=== PATIENT | female | born 1955 | race African-American/Black ===

== ENCOUNTER 2017-01-07 09:15 | Emergency (ER) | payer MEDICARE ==
--- NOTE | 2017-01-07 09:35 | ED.PDOC ---
History of Present Illness - General Chief Complaint: Upper Extremity Injury Stated Complaint: L wrist - drop vs fracture Time Seen by Provider: 01/07/17 09:18 Source: EMS notes reviewed Exam Limitations: clinical condition, physical impairment - History of Present Illness Initial Comments: Maritza ^# y/o female ventilator dependent resident at [facility] brought by ems after it was noted that he had weak careers adviser of her left wrist this morning.Records showed that she had history of chronic respiratory failure with trach and on ventilator dependent, Occurred: just prior to arrival Pain - Upper Extremity: moderate: Wrist, left Method of Injury: unknown Improving Factors: nothing Allergies/Adverse Reactions: Allergies NO KNOWN ALLERGY Allergy (Verified 01/07/17 09:43) Review of Systems - Review of Systems Respiratory: States: other - chronic respiratory failure Musculoskeletal: States: see HPI Neurological: States: see HPI Unable to Obtain Due To: clinical condition Past Medical History (General) - Patient Medical History Hx Other - free text: Chronic respiratory failure ventilator dependent Surgical History: other - tracheostomy,gastrostomy - Activities of Daily Living Senior Care/Assisted Living (if applicable):: [facility] Grooming Ability: Maximum Assistance Eating (Feeding) Ability: Maximum Assistance Toileting Ability: Maximum Assistance Family Medical History - Family History Mother Family History: Unknown Living Status: Unknown Physical Exam - Physical Exam General Appearance: Alert, No apparent distress Eyes, Ears, Nose, Throat Exam: PERRL/EOMI, normal ENT inspection, TMs normal Neck: non-tender, full range of motion, supple, other - tracheostomy patent Cardiovascular/Respiratory: regular rate, rhythm, no M/R/G, normal peripheral pulses, no JVD Abdominal Exam: non-tender, no organomegaly, other - gastrostomy tube patent Shoulder Exam: normal inspection, non-tender, no evidence of injury Elbow/Forearm Exam: normal inspection, non-tender Wrist Exam: normal inspection, non-tender, no evidence of injury Hand Exam: normal inspection, non-tender, no evidence of injury, limited ROM - flexion deformity left wrist Neuro/Tendon: normal sensation, normal motor functions, normal tendon functions , responds to pain, no evidence tendon injury, other - negative pronator drift Mental Status: alert, other - non verbal due to tracheostomy tube Skin Exam: normal color, warm/dry Progress - Results/Orders Results/Orders: 01/07/17 09:58 COMPLETE METABOLIC PROFILE Stat MAGNESIUM Stat THYROID STIMULATING HORMONE Stat Laboratory Results WBC 6.5 K/mm3 (4.8-10.8) 01/07/17 09:58 RBC 3.78 M/mm3 (4.20-5.40) L 01/07/17 09:58 Hgb 10.8 gm/dL (12.0-16.0) L 01/07/17 09:58 Hct 33.4 % (36.0-47.0) L 01/07/17 09:58 MCV 88.3 fl (81.0-99.0) 01/07/17 09:58 MCH 28.5 pg (27.0-31.0) 01/07/17 09:58 MCHC 32.4 g/dL (33.0-37.0) L 01/07/17 09:58 RDW 14.0 % (11.5-14.5) 01/07/17 09:58 Plt Count 219 K/mm3 (130-400) 01/07/17 09:58 Sodium 139 mmol/L (135-145) 01/07/17 09:58 Potassium 4.0 mmol/L (3.6-5.0) 01/07/17 09:58 Chloride 93 mmol/L (101-111) L 01/07/17 09:58 Carbon Dioxide 36 mmol/L (21-31) H 01/07/17 09:58 Anion Gap 14.0 (12-18) 01/07/17 09:58 BUN 14 mg/dL (7-18) 01/07/17 09:58 Creatinine 0.55 mg/dL (0.6-1.3) L 01/07/17 09:58 BUN/Creatinine Ratio 25.5 (10-20) H 01/07/17 09:58 Random Glucose 207 mg/dL (70-105) H 01/07/17 09:58 Serum Osmolality 284.0 mOsm/L (275-295) 01/07/17 09:58 Calcium 9.8 mg/dL (8.4-10.2) 01/07/17 09:58 Magnesium 1.7 mg/dL (1.8-2.5) L 01/07/17 09:58 Total Bilirubin 0.3 mg/dL (0.2-1.0) 03/07/17 09:58 AST 19 IU/L (10-42) 01/07/17 09:58 ALT 25 IU/L (10-60) 01/07/17 09:58 Alkaline Phosphatase 76 IU/L (42-121) 01/07/17 09:58 Serum Total Protein 6.8 gm/dL (6.4-8.2) 01/07/17 09:58 Albumin 3.4 g/dl (3.2-5.5) 01/07/17 09:58 Globulin 3.4 gm/dL (2.3-3.5) 01/07/17 09:58 Albumin/Globulin Ratio 1.0 (1.1-1.9) L 01/07/17 09:58 - EKG/XRAY/CT XRAY: chest - atelectasis,no effusion CT Ordered: Yes - no infarct or hemorrhage Departure - Departure Clinical Impression: Weakness of left arm, Chronic respiratory failure not affecting current episode of care, Ventilator dependent Time of Disposition: 12:33 Disposition: Discharge to Home or Self Care Condition: Good Departure Forms: ED Discharge - Pt. Copy, Patient Portal Self Enrollment Referrals: KASSANDRA BAKER [Primary Care Provider] - 1-2 Weeks Additional Instructions: NEED PHYSICAL THERAPY REFERRAL
--- NOTE | 2017-01-07 11:13 | RAD ---
Study: Single Frontal View of the Chest. Indication:pain Comparison: None Impression: Tracheostomy tube terminates just below the clavicles. Mild cardiomegaly. Thoracic aorta tortuous. Emphysema with suspected bibasilar scarring, otherwise lungs clear. No pneumothorax. Osteopenia. If this is a new finding, DEXA scan recommended as well as evaluation for possible osteoporosis treatment. Electronically signed by: Miles Murillo MD 01/07/2017 11:13 AM TOURIST INFORMATION ASSISTANT
--- NOTE | 2017-01-07 11:13 | CT ---
Study: CT of the Head. Indication: weakness Technique: Axial CT images of the head were acquired without intravenous contrast. Comparison: None. Findings: Examination mild to moderately motion grated. No CT evidence of acute ischemia, acute hemorrhage, mass, mass effect, midline shift, or extra-axial fluid collection. Ventricles are normal in configuration without hydrocephalus. Brain parenchyma demonstrates a normal appearance for patient age. Paranasal sinuses are adequately aerated. Mastoid air cells are adequately aerated. Osseous structures and soft tissues are unremarkable. Impression: 1. Mild to moderately motion grade examination without gross CT evidence of acute intracranial abnormality. If persistent concern for acute ischemia, correlation with MRI recommended. Electronically signed by: Miles Murillo MD 01/07/2017 11:12 AM FORESTRY PILOT
--- NOTE | 2017-01-07 11:32 | RAD ---
Two view left wrist. Indication: pain Comparison: None. Impression: No acute fracture or malalignment. If there is persistent anatomic snuffbox tenderness, repeat wrist imaging to include a scaphoid view is recommended in one week to evaluate for occult scaphoid fracture. Soft tissues are intact without radiopaque foreign body. Osteopenia. If this is a new finding, DEXA scan recommended as well as evaluation for possible osteoporosis treatment. Electronically signed by: Miles Murillo MD 01/07/2017 11:31 AM INSTALLER HELPER
[2017-01-10 05:44] VITALS: TEMP 98; O2SAT 100
[2017-01-10 05:45] VITALS: BP 118/69
== END 2017-01-07 12:35 | disposition home or self-care (01) ==
LOC: ER 09:15
DX: M62.81 Muscle weakness (generalized) (principal); J96.10 Chronic respiratory failure, unspecified whether with hypoxia or hypercapnia; Z99.11 Dependence on respirator [ventilator] status

== ENCOUNTER 2017-01-10 06:49 | Emergency (ER) | payer MEDICARE ==
[2017-01-10 07:09] VITALS: TEMP 98.6
[2017-01-10] MEDS ORDERED: IPRATROPIUM/ALBUTEROL 3 ML VIAL NEB ONE (07:25)
[2017-01-10] MEDS ORDERED: LEVALBUTEROL NEBS 1.25 MG/3 ML VIAL NEB ONE ×2 (07:30)
--- NOTE | 2017-01-10 07:37 | ED.PDOC ---
History of Present Illness - General Chief Complaint: Neuro Symptoms/Deficits Stated Complaint: decrease level of awareness-somnolent Time Seen by Provider: 01/10/17 07:26 Source: EMS notes reviewed, EMS Exam Limitations: clinical condition, physical impairment - History of Present Illness Initial Comments: Medina Damian 62 y/o female patient with chronic respiratory failure s/p tracheostomy ventilator dependent brought by ems with ams .Nurse reported that she was given extra dose of her pain medication this am norco then nurse was making rounds could not wake her up. Respiratory therapist suctioned her trach and was given breathing treatments which perk her up.Patient was more alert and verbalizing wanting another breathing treatment.She was seen 3 days ago for left wrist drop and was worked up with ct head and xray left hand did not show abnormalities was discharged with wrist splint and today able to move her wrist. Timing/Duration: 1-3 hours Severity: moderate Improving Factors: nothing Worsening Factors: nothing Associated Symptoms: denies symptoms Allergies/Adverse Reactions: Allergies NO KNOWN ALLERGY Allergy (Verified 01/07/17 09:43) Review of Systems - Review of Systems Constitutional: States: no symptoms reported EENTM: States: other - tracheostomy Respiratory: States: other - ventilator dependent Neurological: States: see HPI Unable to Obtain Due To: condition, clinical condition Past Medical History (General) - Patient Medical History Hx of COPD: Yes - emphysema; Acute resp failure leading to vent Hx Cardiac Disorders: Yes - Hx PE Hx Hypertension: Yes Hx Thyroid Disease: Yes - hypothyroidism Hx Diabetes: Yes - Vaccination History Hx Influenza Vaccination: No - unkown Hx Pneumococcal Vaccination: No - unknown - Activities of Daily Living Care Home/Assisted Living (if applicable):: [facility] Family Medical History - Family History Mother Family History: Unknown Living Status: Unknown Physical Exam - Physical Exam General Appearance: Alert, No apparent distress Eye Exam: bilateral normal Ears, Nose, Throat: hearing grossly normal, normal ENT inspection, other - tacheostomy tube patent Neck: non-tender, supple Respiratory: chest non-tender, no respiratory distress, wheezing Cardiovascular/Chest: normal peripheral pulses, regular rate, rhythm, no edema, no gallop Gastrointestinal/Abdominal: normal bowel sounds, non tender, soft, other - feeding tube patent Back Exam: normal inspection, no CVA tenderness, no vertebral tenderness Extremity: normal range of motion, non-tender, normal inspection, other - still with weak athletic trainer andweak extensors left wrist Neurologic: no motor/sensory deficits, alert, normal mood/affect, oriented x 3 Skin Exam: normal color, warm/dry Progress - Results/Orders Results/Orders: Patient more alert whispers stating feeling better was suctioned her trach, given nebulizer treatments,and solu medrol.No narcan given since she is awake and able to respond whispering. Departure - Departure Clinical Impression: Altered awareness, transient, Ventilator dependent Overdose of benzodiazepine Qualifiers: Encounter type: initial encounter Injury intent: accidental or unintentional Qualifier Code: (T42.4X1A) Poisoning by benzodiazepines, accidental ( unintentional), initial encounter Chronic respiratory failure Qualifiers: Respiratory failure complication: unspecified whether with hypoxia or hypercapnia Qualifier Code: (J96.10) Chronic respiratory failure, unspecified whether with hypoxia or hypercapnia Time of Disposition: 08:44 Disposition: Discharge to SNF Condition: Good Departure Forms: ED Discharge - Pt. Copy, Patient Portal Self Enrollment Referrals: KASSANDRA BAKER [Primary Care Provider] - 1-2 Weeks
[2017-01-10] MEDS ORDERED: methylPREDNISolone SODIUM SUC 125 MG/2 ML VIAL IV ONE (07:41)
[2017-01-10 09:09] VITALS: BP 113/77; O2SAT 100
== END 2017-01-10 09:09 ==
LOC: ER 06:49
DX: R40.4 Transient alteration of awareness (principal); T42.4X1A Poisoning by benzodiazepines, accidental (unintentional), initial encounter; J96.10 Chronic respiratory failure, unspecified whether with hypoxia or hypercapnia; Z99.11 Dependence on respirator [ventilator] status; I10 Essential (primary) hypertension; E03.9 Hypothyroidism, unspecified; E11.9 Type 2 diabetes mellitus without complications; Z86.711 Personal history of pulmonary embolism; Z79.899 Other long term (current) drug therapy; Y92.129 Unspecified place in nursing home as the place of occurrence of the external cause
CPT/HCPCS: 94002; 94640; 94770; J2930; J7614

== ENCOUNTER 2017-01-12 20:45 | Emergency (ER) | payer MEDICARE ==
[2017-01-12] MEDS: DEXAMETHASONE INJ 4 MG, SODIUM CHLORIDE 0.9% NEB 3 ML NEB ONE ×2 (21:00)
[2017-01-12] MEDS ORDERED: NITROGLYCERIN 0.4 MG 25 EA TAB SL ONE ×3 (21:15→21:25)
[2017-01-12] MEDS ORDERED: IPRATROPIUM/ALBUTEROL 3 ML VIAL NEB ONE ×2 (21:16→23:54)
[2017-01-12] MEDS ORDERED: DEXAMETHASONE INJ 4 MG/ML VIAL ONE (21:16)
[2017-01-12] MEDS ORDERED: SODIUM CHLORIDE 0.9% 10 ML VIAL ONE (21:51)
[2017-01-12] MEDS ORDERED: VECURONIUM BROMIDE 10 MG VIAL IV ONE (21:51)
--- NOTE | 2017-01-12 21:55 | RAD ---
EXAM DESCRIPTION: Chest,1 View CLINICAL HISTORY: 62 years Female vent pt unresponsive. COMPARISON: 01/07/2017. FINDINGS: Tracheostomy tube in place. The cardiomediastinal silhouette appears unremarkable. Atherosclerotic calcifications in the thoracic aorta. Hyperexpanded lungs consistent with COPD. No consolidating infiltrates or pleural effusions. No pneumothorax. IMPRESSION: No acute abnormality is identified. Emphysematous changes. Electronically signed by: Sonido Bland MD 01/12/2017 9:53 PM CDT
[2017-01-12] MEDS ORDERED: ACETYLCYSTEIN 20 % 6,000 MG/30 ML VIAL ONE (21:59)
--- NOTE | 2017-01-12 22:04 | ED.PDOC ---
History of Present Illness - General Chief Complaint: Neuro Symptoms/Deficits Stated Complaint: altered LOC Time Seen by Provider: 01/12/17 21:46 Source: RN notes reviewed, EMS notes reviewed, EMS Exam Limitations: clinical condition, physical impairment Additional Information: Chronic respiratory failure,s/p tracheostomy,ventilator dependent - History of Present Illness Initial Comments: Lata62 y/o female with chronic respiratory failure,s/p tacheostomy and ventilator depent brought by ems after she was found unresponsive at [facility]. According to ems she was not responding for about 30 minutes Timing/Duration: 1 hour Severity: severe Improving Factors: nothing Worsening Factors: nothing Allergies/Adverse Reactions: Allergies NO KNOWN ALLERGY Allergy (Verified 01/07/17 09:43) Review of Systems - Review of Systems Unable to Obtain Due To: condition, clinical condition - see hpi Past Medical History (General) - Patient Medical History Hx of COPD: Yes - emphysema; Acute resp failure leading to vent Hx Cardiac Disorders: Yes - Hx PE Hx Hypertension: Yes Hx Thyroid Disease: Yes - hypothyroidism Hx Diabetes: Yes - Vaccination History Hx Influenza Vaccination: No - unkown Hx Pneumococcal Vaccination: No - unknown - Activities of Daily Living Correction/Assisted Living (if applicable):: [facility] Grooming Ability: Total Assistance Eating (Feeding) Ability: Total Assistance Toileting Ability: Total Assistance Family Medical History - Family History Mother Family History: Unknown Living Status: Unknown Physical Exam - Physical Exam General Appearance: Other - unresponsive Ears, Nose, Throat: other - dry oropharyngeal mucosa Neck: other - tracheostomy intact Respiratory: respiratory distress, decreased breath sounds Cardiovascular/Chest: tachycardia Peripheral Pulses: radial,right: 2+, radial,left: 2+ Gastrointestinal/Abdominal: soft, no organomegaly, no pulsatile mass Extremity: no pedal edema, normal capillary refill Neurologic: other - gcs -8 Skin Exam: normal color, warm/dry Lymphatic: no adenopathy Progress - Results/Orders Results/Orders: 01/12/17 21:40 ABG [Arterial Blood Gas] Stat 01/12/17 22:15 EKG STAT 01/12/17 23:20 Arterial Blood Gas Stat 01/12/17 23:47 Mechanical Ventilation DAILY 01/12/17 23:54 SVN/Updraft Therapy .PRN 01/13/17 21:30 Acetylcystein 20 % [Mucomyst] 800 mg NEB ONCE ONE Laboratory Results WBC 12.7 K/mm3 (4.8-10.8) H 01/12/17 21:55 RBC 3.98 M/mm3 (4.20-5.40) L 01/12/17 21:55 Hgb 11.3 gm/dL (12.0-16.0) L 01/12/17 21:55 Hct 35.9 % (36.0-47.0) L 01/12/17 21:55 MCV 90.2 fl (81.0-99.0) 01/12/17 21:55 MCH 28.3 pg (27.0-31.0) 01/12/17 21:55 MCHC 31.4 g/dL (33.0-37.0) L 01/12/17 21:55 RDW 14.8 % (11.5-14.5) H 01/12/17 21:55 Plt Count 303 K/mm3 (130-400) 01/12/17 21:55 MPV 10.4 fl (7.40-10.4) 01/12/17 21:55 Absolute Neuts (auto) 10.90 K/uL (1.8-6.8) H 01/12/17 21:55 Absolute Lymphs (auto) 0.60 K/uL (1.0-3.4) L 01/12/17 21:55 Absolute Monos (auto) 1.10 K/uL (0.2-0.8) H 01/12/17 21:55 Absolute Eos (auto) 0.00 K/uL (0.0-0.4) 01/12/17 21:55 Absolute Basos (auto) 0.00 K/uL (0.0-0.1) 01/12/17 21:55 Neutrophils % 85.8 % (42.0-78.0) H 01/12/17 21:55 Lymphocytes % 4.8 % (20.0-50.0) L 01/12/17 21:55 Monocytes % 9.1 % (2.0-9.0) H 01/12/17 21:55 Eosinophils % 0.1 % (1.0-5.0) L 01/12/17 21:55 Basophils % 0.2 % (0.0-2.0) 01/12/17 21:55 D-Dimer, Quantitative < 230 ng/mL (0-230) 01/12/17 21:55 Sodium 142 mmol/L (135-145) 01/12/17 21:55 Potassium 5.1 mmol/L (3.6-5.0) H 01/12/17 21:55 Chloride 96 mmol/L (101-111) L 01/12/17 21:55 Carbon Dioxide 38 mmol/L (21-31) H 01/12/17 21:55 Anion Gap 13.1 (12-18) 01/12/17 21:55 BUN 15 mg/dL (7-18) 01/12/17 21:55 Creatinine 0.75 mg/dL (0.6-1.3) 01/12/17 21:55 BUN/Creatinine Ratio 20.0 (10-20) 01/12/17 21:55 Random Glucose 290 mg/dL (70-105) H 01/12/17 21:55 Serum Osmolality 294.6 mOsm/L (275-295) 01/12/17 21:55 Calcium 9.8 mg/dL (8.4-10.2) 01/12/17 21:55 Total Bilirubin 0.2 mg/dL (0.2-1.0) 01/12/17 21:55 AST 30 IU/L (10-42) 01/12/17 21:55 ALT 35 IU/L (10-60) 01/12/17 21:55 Alkaline Phosphatase 113 IU/L (42-121) 01/12/17 21:55 Creatine Kinase 84 IU/L (26-140) 01/12/17 21:55 CK-MB (CK-2) 7.6 ng/mL (0.0-4.4) H* 01/12/17 21:55 CK-MB (CK-2) % Not Reportable 01/12/17 21:55 Troponin I 0.04 ng/mL (0.01-0.05) 01/12/17 21:55 Serum Total Protein 7.8 gm/dL (6.4-8.2) 01/12/17 21:55 Albumin 3.9 g/dl (3.2-5.5) 01/12/17 21:55 Globulin 3.9 gm/dL (2.3-3.5) H 01/12/17 21:55 Albumin/Globulin Ratio 1.0 (1.1-1.9) L 01/12/17 21:55 Troponin i stat repeat-0.06 Departure - Departure Clinical Impression: Altered awareness, transient, Non-ST elevation MA (NSTEMI), Ventilator dependent, Mucus plugging of bronchi Chronic respiratory failure Qualifiers: Respiratory failure complication: unspecified whether with hypoxia or hypercapnia Qualifier Code: (J96.10) Chronic respiratory failure, unspecified whether with hypoxia or hypercapnia Time of Disposition: 05:22 - [facility] Disposition: Transfer to Hospital Condition: Fair Departure Forms: ED Discharge - Pt. Copy, Patient Portal Self Enrollment
--- NOTE | 2017-01-12 22:51 | CT ---
EXAM: CT head without contrast. INDICATION: Headache. TECHNIQUE: Contiguous axial CT images of the brain. Intravenous contrast: Absent. DLP 773 mGy-cm. COMPARISON: 01/07/17. FINDINGS: Subcutaneous: Unremarkable. No acute intracranial hemorrhage. No midline shift. No mass effect. Ventricles: No hydrocephalus. Yepez-white differentiation preserved. Paranasal sinuses/mastoid air cells: Visualized portions are aerated. Bones/orbits: Visualized portions are unremarkable. IMPRESSION: 1. No CT evidence of acute intracranial hemorrhage. Electronically signed by: Valentin Sandoval MD 01/12/2017 10:50 PM CDT
[2017-01-13 04:00] VITALS: O2SAT 100
[2017-01-13 05:56] VITALS: BP 158/99
[2017-01-13] MEDS ORDERED: ACETYLCYSTEIN 20 % 6,000 MG/30 ML VIAL NEB ONE (21:30)
== END 2017-01-13 05:56 | disposition short-term general hospital (02) ==
LOC: ER 20:45
DX: I21.4 Non-ST elevation (NSTEMI) myocardial infarction (principal); J96.10 Chronic respiratory failure, unspecified whether with hypoxia or hypercapnia; R40.4 Transient alteration of awareness; Z99.11 Dependence on respirator [ventilator] status; I11.0 Hypertensive heart disease with heart failure; E03.9 Hypothyroidism, unspecified; E11.9 Type 2 diabetes mellitus without complications; Z86.711 Personal history of pulmonary embolism; T17.590A Other foreign object in bronchus causing asphyxiation, initial encounter; X58.XXXA Exposure to other specified factors, initial encounter; Y92.129 Unspecified place in nursing home as the place of occurrence of the external cause
CPT/HCPCS: 36600; 70450; 71010; 80053; 82550; 82553; 82803; 82805; 84484; 85025; 85379; 93005; 94002; 94003; 94640; 94770; J1100; J7620